=== PATIENT | male | born 1940 | race Caucasian/White ===

== ENCOUNTER 2021-12-22 01:17 | Emergency (ER) | payer MEDICARE, OTHER ==
[~2021-12-22] VITALS: Ht 188 cm; Wt 145.1 kg
[2021-12-22 01:30] VITALS: BP_SYST 111
--- NOTE | 2021-12-22 01:35 | NUR ---
PT CURRENTLY IN [facility]. NO BEDS AVAILABLE. FIXED ROUTE OPERATOR WITH PT
[2021-12-22 02:55] LABS: BASOPHILS % (AUTO) 0.3 % (0.0-2.0); EOSINOPHILS # (AUTO) 0.1 K/uL (0.0-0.4); HEMATOCRIT 28.9 % (36-54); HEMOGLOBIN 9.9 g/dL (14.0-18.0); LYMPHOCYTES # (AUTO) 0.2 K/uL (1.0-5.5); LYMPHOCYTES % (AUTO) 4.3 % (20.5-51.5); MEAN CORPUSCULAR HEMOGLOBIN 32 pg (27-31); MEAN CORPUSCULAR HGB CONC 34 % (32-36); MEAN CORPUSCULAR VOLUME 94 fL (79.0-98.0); MONOCYTES # (AUTO) 0.5 K/uL (0.0-1.0); NEUTROPHILS # (AUTO) 4.9 K/uL (1.8-7.7); NEUTROPHILS % (AUTO) 86.4 % (40.0-70.0); PLATELET COUNT (AUTO) 199 K/uL (130-430); RED BLOOD CELL COUNT(AUTO) 3.08 MIL/uL (4.2-6.2); RED CELL DISTRIBUTION WIDTH 14.6 % (9.0-15.0); WHITE BLOOD COUNT (AUTO) 5.7 K/uL (4.8-10.8)
--- NOTE | 2021-12-22 03:00 | NUR ---
PT MOVED TO BED 2 PT FELL OUT OF BED, SUSTAINED INJURY TO NOSE AND ABRASION TO RIGHT KNEE BLEEDING CONTROLLED NAD NOTED AT THIS TIME
[2021-12-22 03:14] LABS: PROTHROMBIN TIME 10.6 SECS (9.5-12.5)
[2021-12-22] MEDS ORDERED: AMPICILLIN SODIUM/SULBACTAM NA 3 GM in NS 100 ML IV ONE (03:30)
[2021-12-22] MEDS ORDERED: DIPH-TET-PERTUS Vaccine 0.5 ML VIAL (ADACEL) I.M. ONE (03:30)
[2021-12-22 03:42] LABS: ALANINE AMINOTRANSFERASE 16 U/L (12-78); ALBUMIN 3.1 g/dL (3.4-4.8); ANION GAP 5 (5-15); ASPARTATE AMINOTRANSFERASE 24 U/L (10-37); CALCIUM 8.3 mg/dL (8.4-11.0); CHLORIDE 86 mmol/L (98-107); CREATININE 1.49 mg/dL (0.55-1.30); GLUCOSE 64 mg/dL (70-99); POTASSIUM 3.8 mmol/L (3.5-5.1); SODIUM SERUM 124 mmol/L (136-145); TOTAL BILIRUBIN 0.8 mg/dL (0.0-1.0); UREA NITROGEN, BLOOD 21 mg/dL (8-21)
[2021-12-22 03:43] LABS: ALCOHOL, BLOOD < 3 mg/dL (<10)
[2021-12-22] MEDS ORDERED: AMPICILLIN SODIUM/SULBACTAM NA 3 GM VIAL ONE (03:54)
[2021-12-22] MEDS ORDERED: LIDOCAINE/EPI 1% 1:100000 20 ML VIAL INJ ONE (04:30)
[2021-12-22 05:11] LABS: BILIRUBIN,URINE NEGATIVE (NEGATIVE); BLOOD, URINE 2+ (NEGATIVE); CLARITY/URINE CLEAR (CLEAR); COLOR,URINE YELLOW (YELLOW); GLUCOSE,URINE NEGATIVE (NEGATIVE); KETONES,URINE NEGATIVE (NEGATIVE); LEUKOCYTE ESTERASE ,URINE 2+ (NEGATIVE); NITRITE, URINE NEGATIVE (NEGATIVE); PROTEIN URINE TRACE (NEGATIVE); UROBILINOGEN,URINE 0.2 (0.2-1.0)
[2021-12-22 05:31] LABS: BACTERIA,URINE FEW /HPF (None Seen); WBC,URINE 20-50 /HPF (0-3)
[2021-12-22] MEDS ORDERED: CLIN-22 PO ×2 (05:31)
[2021-12-22] MEDS ORDERED: TRAM50TA PO ×2 (05:31)
[2021-12-22 05:32] LABS: BARBITURATE, URINE NEGATIVE (NEG <=200); BENZODIAZEPINE, URINE NEGATIVE (NEG <=150); CANNABINOID, URINE NEGATIVE (NEG <=50); COCAINE, URINE NEGATIVE (NEG <=150); METHAMPHETAMINES SCREEN,URINE NEGATIVE (NEG <=500); OPIATE, URINE NEGATIVE (NEG <=100); PHENCYCLIDINE SCREEN,URINE NEGATIVE (NEG <=25); UR TRICYCLIC ANTIDEPRESSANTS NEGATIVE (NEG <=300); URINE AMPHETAMINE NEGATIVE (NEG <=500); URINE METHADONE NEGATIVE (NEG <=200); URINE OXYCODONE SCREEN NEGATIVE (NEG <=100); URINE PROPOXYPHENE SCREEN NEGATIVE (NEG <=300)
--- NOTE | 2021-12-22 05:59 | NUR ---
WOUNDCARE DONE. OK TO DC. ATTEMPTING TO FIND PT TRANSPORTATION HOME.
--- NOTE | 2021-12-22 06:32 | NUR ---
PT STATES HE NORMALLY USES 2.5L O2 AT HOME PLACED PT ON 2.5L NC PER REQUEST
--- NOTE | 2021-12-22 06:43 | NUR ---
DRE FROM [facility] CALLED BACK TO REPORT ETA FOR TRANSPORT 11AM
--- NOTE | 2021-12-22 07:24 | NUR ---
REPORT RECEIVED, ASSUMED CARE OF PT AT THIS TIME. PT IS DC'D HOME AT THIS TIME, AWAITING TRANSPORTATION. LAC REPAIR DONE, NO ACTIVE BLEEDING. WILL CONT TO MONITOR
--- NOTE | 2021-12-22 08:28 | NUR ---
BS CHECKED, 62. PT IS SLEEPING EASILY AROUSED BUT MUMBLES MOSTLY. UNSURE IF THIS IS PTS BASELINE MENTAL STATUS. ATTEMPTED TO GIVE PT JUICE BUT PT NOT SWALLOWING. DR MITTAL MADE AWARE. WILL PUT IN ORDERS FOR D50 IV. DAVE GREER
[2021-12-22] MEDS ORDERED: DEXTROSE 50% JECT 50 ML DISP.SYRIN IVP ONE (08:45)
[2021-12-22] MEDS ORDERED: D5NS 1,000 ML IV ONE (09:00)
[2021-12-22] MEDS ORDERED: CEFI200T PO ×2 (10:26)
--- NOTE | 2021-12-22 10:29 | NUR ---
PT RESTING COMFORTABLY. NO DISTRESS NOTED. RECHECK ACCUCHECK 106. STARTED D5NS @100ML/HR. VS STABLE. PT AWAITING TRANSFER TO [place]. WILL CONT TO MONITOR
[2021-12-22] MEDS ORDERED: ASPIRIN 325 MG TABLET PO ONE (11:15)
--- NOTE | 2021-12-22 12:15 | NUR ---
PTRESTING COMFORTABLY. VSS. AWAITING READY BED/TRANSFER INFO AT [facility]. WILL CONT TO MONITOR
--- NOTE | 2021-12-22 13:15 | NUR ---
EKG PRINTED AND GIVEN TO FOR INTERPRETATION.
[2021-12-22 14:08] LABS: ANION GAP 4 (5-15); CALCIUM 8.2 mg/dL (8.4-11.0); CHLORIDE 87 mmol/L (98-107); CREATININE 1.51 mg/dL (0.55-1.30); GLUCOSE 157 mg/dL (70-99); SODIUM SERUM 124 mmol/L (136-145); UREA NITROGEN, BLOOD 18 mg/dL (8-21)
[2021-12-22 14:11] LABS: PHOSPHORUS 3.2 mg/dL (2.7-4.5)
--- NOTE | 2021-12-22 14:42 | NUR ---
NO CHANGE IN STATUS. VSS. AWAITING RESULTS FOR REPEAT BMP TO GET ROOM ASSUGNMENT AT [place]
--- NOTE | 2021-12-22 15:46 | NUR ---
Transfer information: [facility] (ER) Accepting [facility] Report #: [phone] Ambulance company: [email or web address] [facility] ETA [id number]
--- NOTE | 2021-12-22 15:47 | NUR ---
INFORMED PTS FRIEND MARIANNE ([phone]) OF PTS LOCATION AND TRANSFER TO [facility]
--- NOTE | 2021-12-22 16:11 | NUR ---
REPORT CALLED TO CAITLIN GREER (CHARGE NURSE) AT [facility]. PT BEING TRANSFERRED ER TO ER. QUESTIONS ANSWERED. ETA 1700. WILL CONT TO MONITOR
[2021-12-22 16:30] VITALS: BP_SYST 160
--- NOTE | 2021-12-22 17:44 | NUR ---
Krystal crain in [facility] - 12/22/21 at 1745 by [email or web address] DAUGHTER AT BEDSIDE. AWAITING RESULTS
== END 2021-12-22 19:00 | disposition short-term general hospital (02) ==
LOC: SED 01:17
DX: S02.2XXA Fracture of nasal bones, initial encounter for closed fracture (principal); S16.1XXA Strain of muscle, fascia and tendon at neck level, initial encounter; S09.90XA Unspecified injury of head, initial encounter; E11.649 Type 2 diabetes mellitus with hypoglycemia without coma; E11.22 Type 2 diabetes mellitus with diabetic chronic kidney disease; I13.0 Hypertensive heart and chronic kidney disease with heart failure and stage 1 through stage 4 chronic kidney disease, or unspecified chronic kidney disease; N18.9 Chronic kidney disease, unspecified; I50.9 Heart failure, unspecified; E87.1 Hypo-osmolality and hyponatremia; R53.1 Weakness; N39.0 Urinary tract infection, site not specified; Z20.822 Contact with and (suspected) exposure to COVID-19; W18.09XA Striking against other object with subsequent fall, initial encounter; Y93.89 Activity, other specified; Y92.89 Other specified places as the place of occurrence of the external cause; Y99.8 Other external cause status
CPT/HCPCS: 36415; 70450; 70486; 71045; 72125; 76376; 80048; 80053; 80307; 81000; 82962; 83605; 83735; 84100; 84484; 85025; 85610; 87040; 87086; 87426; 90471; 90715; 93005; 96365; 96366; 96367; 96375; 99285; G0482; J0295; J7030; 96361